=== PATIENT | female | born 1955 | race Caucasian/White ===

== ENCOUNTER 2017-06-28 23:18 | Emergency (ER) | payer MEDICAID ==
[~2017-06-28] VITALS: Ht 154.9 cm; Wt 62.4 kg
[~2017-06-28 23:18] MED LIST: ALEN70TA5 PO; AMOX1TAB12 PO; B CO1TAB14 PO; CEFD300C37 PO; DIVA250T14 PO; DOCU-131 PO; FURO40TA6 PO; GABA300C10 PO; LOSA100T6 PO; LOSA50TA2 PO; MAGN400T26 PO; MAGN400T7 PO; METR500T PO; MYCO500T3 PO; OMEP40CA6 PO; OXYC5TAB3 PO; PANT40TA5 PO; POTA10TA31 PO; POTA20TA89 PO; PRED20TA PO; PRED5TAB PO; ROSU10TA PO; SUCR1TAB PO; SUCR1TAB33 PO; UBID10CA7 PO; UBID200C7 PO; VALS160T3 PO; VALS1TAB26 PO; VERA180C2 PO; VERA180T56 PO; VITA1CAP PO
[2017-06-29] MEDS ORDERED: ROSU5TAB PO (00:11)
[2017-06-29] MEDS ORDERED: PENT100C2 PO (00:11)
[2017-06-29] MEDS ORDERED: ASPIRIN 81 MG TABLET CHEW ONE (00:25)
[2017-06-29] MEDS ORDERED: ASPIRIN 81 MG TABLET CHEW PO ONE (00:30)
[2017-06-29 00:43] LABS: HEMATOCRIT 35.4 % (34.6-47.8); HEMOGLOBIN 11.9 g/dL (11.7-16.4); WHITE BLOOD COUNT 4.9 x10^3/uL (3.4-10)
[2017-06-29 00:56] LABS: ASPARTATE AMINO TRANSFERASE 14 U/L (15-37); BLOOD UREA NITROGEN 34 mg/dL (7-18)
[2017-06-29 01:04] LABS: IS PT STATUS REG ER OR PRE ER? YES
[2017-06-29 01:36] VITALS: BP 172/85
== END 2017-06-29 02:23 | disposition home or self-care (01) ==
LOC: ED 23:59
DX: I10 Essential (primary) hypertension (principal); R07.89 Other chest pain
CPT/HCPCS: 36415; 71010; 80053; 81003; 84484; 85025; 93005; 99285

== ENCOUNTER 2017-06-29 14:51 | Emergency (ER) | payer MEDICAID ==
[~2017-06-29] VITALS: Ht 154.9 cm; Wt 62.0 kg
[~2017-06-29 14:51] MED LIST changes: +PENT100C2 PO; +ROSU5TAB PO
[2017-06-29 15:26] LABS: HEMATOCRIT 36.6 % (34.6-47.8); HEMOGLOBIN 12.2 g/dL (11.7-16.4); WHITE BLOOD COUNT 5.8 x10^3/uL (3.4-10)
[2017-06-29] MEDS ORDERED: MORPHINE SULFATE 4 MG/ML, 1ML IVPush PRN (15:30)
[2017-06-29] MEDS ORDERED: SODIUM CHLORIDE FLUSH 10ML SYR IVF ONE (15:30)
[2017-06-29] MEDS ORDERED: ONDANSETRON 2MG/ML, 2ML IVPush ONE (15:30)
[2017-06-29 15:37] LABS: BLOOD UREA NITROGEN 38 mg/dL (7-18)
[2017-06-29 15:44] LABS: IS PT STATUS REG ER OR PRE ER? YES
[2017-06-29] MEDS ORDERED: MORPHINE SULFATE 4 MG/ML, 1ML ONE (16:06)
[2017-06-29] MEDS ORDERED: ONDANSETRON 2MG/ML, 2ML ONE (16:06)
[2017-06-29] MEDS ORDERED: HYDROcodone/APAP 5/325 TABLET ONE (16:37)
[2017-06-29] MEDS ORDERED: HYDROcodone/APAP 5/325 TABLET PO ONE (17:00)
[2017-06-29 18:10] VITALS: BP 177/93
== END 2017-06-29 18:14 | disposition home or self-care (01) ==
LOC: ED 17:09
DX: H53.8 Other visual disturbances (principal); E78.5 Hyperlipidemia, unspecified; E11.9 Type 2 diabetes mellitus without complications; I10 Essential (primary) hypertension
CPT/HCPCS: 36415; 70450; 71010; 80048; 81003; 82040; 83880; 84484; 85025; 85610; 93005; 96374; 99285; J2405

== ENCOUNTER 2017-09-06 11:15 | Emergency (ER) | payer MEDICAID ==
[~2017-09-06] VITALS: Ht 154.9 cm; Wt 60.3 kg
[2017-09-06] MEDS ORDERED: SODIUM CHLORIDE 0.9% 1,000ML IVBOLUS ONE (12:00)
[2017-09-06] MEDS ORDERED: ONDANSETRON 2MG/ML, 2ML IVPush ONE (12:00)
[2017-09-06] MEDS ORDERED: MECLIZINE CHEWABLE 25 MG TAB PO ONE (12:00)
[2017-09-06] MEDS ORDERED: SODIUM CHLORIDE FLUSH 10ML SYR IVF ONE (12:00)
[2017-09-06] MEDS ORDERED: MECLIZINE CHEWABLE 25 MG TAB ONE (12:07)
[2017-09-06 12:24] LABS: ASPARTATE AMINO TRANSFERASE 13 U/L (15-37); BLOOD UREA NITROGEN 30 mg/dL (7-18)
[2017-09-06 12:25] LABS: HEMATOCRIT 38.1 % (34.6-47.8); HEMOGLOBIN 12.9 g/dL (11.7-16.4); WHITE BLOOD COUNT 4.8 x10^3/uL (3.4-10)
[2017-09-06 12:29] LABS: VALPROIC ACID 28.7 mcg/mL (50.0-100.0)
[2017-09-06 12:33] LABS: IS PT STATUS REG ER OR PRE ER? YES
[2017-09-06] MEDS ORDERED: DIAZEPAM 5 MG TABLET ONE (14:25)
[2017-09-06] MEDS ORDERED: DIAZEPAM 5 MG TABLET PO ONE (14:30)
[2017-09-06 14:33] VITALS: BP 113/73
== END 2017-09-06 16:09 | disposition home or self-care (01) ==
LOC: ED 14:16
DX: H81.10 Benign paroxysmal vertigo, unspecified ear (principal); E11.9 Type 2 diabetes mellitus without complications; E78.5 Hyperlipidemia, unspecified; G43.909 Migraine, unspecified, not intractable, without status migrainosus
CPT/HCPCS: 36415; 70450; 80053; 80164; 84484; 85025; 93005; 99285

== ENCOUNTER 2018-01-24 18:56 | Emergency (ER) | payer MEDICAID ==
[~2018-01-24] VITALS: Ht 165.1 cm; Wt 61.2 kg
[2018-01-24] MEDS ORDERED: KETOROLAC 30 MG/1 ML ONE (19:24)
[2018-01-24] MEDS ORDERED: ONDANSETRON 2MG/ML, 2ML ONE (19:24)
[2018-01-24] MEDS ORDERED: SODIUM CHLORIDE FLUSH 10ML SYR IVF ONE (19:30)
[2018-01-24] MEDS ORDERED: KETOROLAC 30 MG/1 ML IVPush ONE (19:30)
[2018-01-24] MEDS ORDERED: ONDANSETRON 2MG/ML, 2ML IVPush ONE (19:30)
[2018-01-24 19:42] LABS: BASOPHILS # (AUTO) 0.01 x10^3/uL (0-0.1); BASOPHILS % (AUTO) 0 % (0-1); EOSINOPHILS # (AUTO) 0.04 x10^3/uL (0-0.4); EOSINOPHILS % (AUTO) 1 % (1-7); LYMPHOCYTES # (AUTO) 0.76 x10^3/uL (1-3.4); LYMPHOCYTES % (AUTO) 18 % (22-44); MD NO; MEAN CORPUSCULAR HEMOGLOBIN 30.4 pg (27.0-34.8); MEAN CORPUSCULAR HGB CONC 34.4 g/dL (32.4-35.8); MEAN CORPUSCULAR VOLUME 88.4 fL (80-100); MEAN PLATELET VOLUME 10.7 fL (7.4-10.4); MONOCYTES % (AUTO) 3 % (2-9); NEUTROPHILS # (AUTO) 3.26 x10^3/uL (1.8-6.8); NEUTROPHILS % (AUTO) 78 % (42-75); PLATELET COUNT 152 x10^3/uL (130-400); RED BLOOD COUNT 4.02 x10^6/uL (3.82-5.3); RED CELL DISTRIBUTION WIDTH 13.1 % (9.6-15.2)
[2018-01-24 19:43] LABS: MICROSCOPIC NOT IND
[2018-01-24 19:54] LABS: ANION GAP 8 mmol/L (5-15); CALCIUM 8.7 mg/dL (8.5-10.1); CHLORIDE 110 mmol/L (98-107)
[2018-01-24 19:56] LABS: ALANINE AMINOTRANSFERASE 24 U/L (12-78); ALKALINE PHOSPHATASE 67 U/L (45-117); BILIRUBIN,TOTAL 0.3 mg/dL (0.2-1.0); CREATININE 1.72 mg/dL (0.55-1.02); TOTAL PROTEIN 7.3 g/dL (6.4-8.2)
[2018-01-24 19:56] LABS: CULTURE INDICATED? NO
[2018-01-24 21:55] VITALS: BP 140/85
== END 2018-01-24 21:57 | disposition home or self-care (01) ==
LOC: ED 21:51
DX: N18.2 Chronic kidney disease, stage 2 (mild) (principal); R30.0 Dysuria; I12.9 Hypertensive chronic kidney disease with stage 1 through stage 4 chronic kidney disease, or unspecified chronic kidney disease; E11.22 Type 2 diabetes mellitus with diabetic chronic kidney disease; E78.5 Hyperlipidemia, unspecified; K21.9 Gastro-esophageal reflux disease without esophagitis
CPT/HCPCS: 36415; 74176; 76770; 80053; 81003; 85025; 96374; 96375; 99285; J1885; J2405

== ENCOUNTER 2018-06-30 12:18 | Emergency (ER) | payer MEDICAID ==
[~2018-06-30] VITALS: Ht 154.9 cm; Wt 62.0 kg
[2018-06-30 12:29] VITALS: BP 138/82
== END 2018-06-30 13:53 | disposition home or self-care (01) ==
LOC: ED 13:30
DX: S93.402A Sprain of unspecified ligament of left ankle, initial encounter (principal); E11.9 Type 2 diabetes mellitus without complications; E78.5 Hyperlipidemia, unspecified; I10 Essential (primary) hypertension; X50.1XXA Overexertion from prolonged static or awkward postures, initial encounter; Y93.89 Activity, other specified; Y99.8 Other external cause status; Y92.099 Unspecified place in other non-institutional residence as the place of occurrence of the external cause
CPT/HCPCS: 99284

== ENCOUNTER 2018-07-31 17:28 | Emergency (ER) | payer MEDICAID ==
[~2018-07-31] VITALS: Ht 152.4 cm; Wt 60.1 kg
[~2018-07-31 17:28] MED LIST changes: -LOSA100T6 PO; +LOSA100T7 PO
[2018-07-31 18:15] VITALS: BP 132/84
== END 2018-07-31 19:27 | disposition home or self-care (01) ==
LOC: ED 18:51
DX: S93.492A Sprain of other ligament of left ankle, initial encounter (principal); I10 Essential (primary) hypertension; K21.9 Gastro-esophageal reflux disease without esophagitis; E11.9 Type 2 diabetes mellitus without complications; E78.5 Hyperlipidemia, unspecified; X50.1XXA Overexertion from prolonged static or awkward postures, initial encounter; Y93.89 Activity, other specified; Y92.89 Other specified places as the place of occurrence of the external cause; Y99.8 Other external cause status
CPT/HCPCS: 72110; 99284

== ENCOUNTER → 2018-11-14 | Outpatient (CLI) | payer MEDICAID ==
[~2018-11-14] MED LIST changes: +GADOBUTROL 7.5 MMOL/7.5 ML PFS ONE
== END | disposition home or self-care (01) ==
LOC: CFH 11:41
PROVIDERS: ATTEND Psychiatry & Neurology Neurology
DX: I60.9 Nontraumatic subarachnoid hemorrhage, unspecified (principal)
CPT/HCPCS: 70553; A9585

== ENCOUNTER 2019-06-25 12:51 | Emergency (ER) | payer MEDICAID ==
[~2019-06-25] VITALS: Ht 154.9 cm; Wt 57.9 kg
[2019-06-25 14:34] VITALS: BP 136/89
== END 2019-06-25 15:55 | disposition home or self-care (01) ==
LOC: ED 15:49
DX: N18.3 Chronic kidney disease, stage 3 (moderate) (principal); I10 Essential (primary) hypertension; I12.9 Hypertensive chronic kidney disease with stage 1 through stage 4 chronic kidney disease, or unspecified chronic kidney disease; E11.22 Type 2 diabetes mellitus with diabetic chronic kidney disease; E11.9 Type 2 diabetes mellitus without complications; E78.5 Hyperlipidemia, unspecified; R51 Headache
CPT/HCPCS: 36415; 70450; 80048; 82040; 85025; 93005; 99284

== ENCOUNTER 2019-09-18 14:35 | Emergency (ER) | payer MEDICAID ==
[~2019-09-18] VITALS: Ht 154.9 cm; Wt 57.6 kg
[~2019-09-18 14:35] MED LIST changes: -ALEN70TA5 PO; +ALEN70TA6 PO; -GADOBUTROL 7.5 MMOL/7.5 ML PFS ONE; +LOSA100T14 PO; -LOSA100T7 PO; -MAGN400T7 PO; +MAGN400T9 PO; +OMEP40CA42 PO; -OMEP40CA6 PO; -ROSU10TA PO; +ROSU10TA2 PO; -VERA180T56 PO; +VERA180T6 PO
[2019-09-18 14:38] VITALS: BP 129/78
--- NOTE | 2019-09-18 15:19 | NUR ---
pt ambulated to room with a steady gait. Comes in with c/o body aches x3 weeks, cough x 3 weeks, bilateral ear ache and fever x3-4 days
--- NOTE | 2019-09-18 15:25 | NUR ---
at bedside evulating pt.
--- NOTE | 2019-09-18 16:13 | NUR ---
MD at bedside discussing POC.
--- NOTE | 2019-09-18 17:07 | NUR ---
Pt verb. understanding of d/c instructions & use of spacer. D/C RX & instructions provided.
== END 2019-09-18 17:10 | disposition home or self-care (01) ==
LOC: ED 17:00
DX: J20.9 Acute bronchitis, unspecified (principal); H92.03 Otalgia, bilateral
CPT/HCPCS: 71046; 99283

== ENCOUNTER 2019-12-17 16:54 | Inpatient (IN) | payer MEDICAID ==
[~2019-12-17] VITALS: Ht 154.9 cm; Wt 58.6 kg
--- NOTE | 2019-12-17 17:23 | NUR ---
COMPUTER FORENSIC SPECIALIST: PT AMBULATORY WITH STEADY GAIT TO ROOM FROM LOBBY AT THIS TIME. JUAN C
--- NOTE | 2019-12-17 17:39 | NUR ---
FIRST CONTACT WITH PT. PT C/O RLQ PAIN SINCE LAST NIGHT, HX SAME 3YRS AGO, HYSTERECTOMY/APPY, DENIES NV/FEVER. PT'S AOX4. RESPS EVEN AND UNLABORED. BP/SPO2 MONITORS IN PLACE. CALL LIGHT WITHIN REACH. LAB AT BEDSIDE. BRAZILIAN IS PRIMARY LANGUAGE.
--- NOTE | 2019-12-17 17:45 | NUR ---
PT BACK TO ROOM FROM XRAY AT THIS TIME.
--- NOTE | 2019-12-17 17:49 | NUR ---
UA SENT AT THIS TIME.
[2019-12-17 17:51] LABS: ALBUMIN 4.2 g/dL (3.4-5.0); ANION GAP 7 mmol/L (5-15); CHLORIDE 116 mmol/L (98-107); CREATININE 1.83 mg/dL (0.55-1.02)
[2019-12-17 18:11] LABS: CULTURE INDICATED? YES; MICROSCOPIC INDICATED
[2019-12-17 18:31] LABS: BASOPHILS # (AUTO) 0.03 x10^3/uL (0-0.1); BASOPHILS % (AUTO) 1 % (0-1); EOSINOPHILS # (AUTO) 0.08 x10^3/uL (0-0.4); EOSINOPHILS % (AUTO) 2 % (1-7); LYMPHOCYTES # (AUTO) 1.84 x10^3/uL (1-3.4); LYMPHOCYTES % (AUTO) 35 % (22-44); MD SCAN; MEAN CORPUSCULAR HEMOGLOBIN 30.3 pg (27.0-34.8); MEAN CORPUSCULAR HGB CONC 33.6 g/dL (32.4-35.8); MEAN PLATELET VOLUME 11.4 fL (7.4-10.4); MONOCYTES # (AUTO) 0.23 x10^3/uL (0.2-0.8); MONOCYTES % (AUTO) 4 % (2-9); NEUTROPHILS # (AUTO) 3.11 x10^3/uL (1.8-6.8); NEUTROPHILS % (AUTO) 59 % (42-75); PLATELET COUNT 110 x10^3/uL (130-400); RED BLOOD COUNT 4.18 x10^6/uL (3.82-5.3); RED CELL DISTRIBUTION WIDTH 12.9 % (9.6-15.2)
--- NOTE | 2019-12-17 18:32 | NUR ---
PT RESTING IN [facility]. RESPS EVEN AND UNLABORED. BP/SPO2 MONITORS IN PLACE. CALL LIGHT WITHIN REACH.
--- NOTE | 2019-12-17 18:50 | NUR ---
REPORT GIVEN TO CARLYLE DEVRIES.
--- NOTE | 2019-12-17 20:15 | NUR ---
Pt still complaining of right lower quad pain.
[2019-12-17] MEDS ORDERED: HYDROmorphone 1 MG/ML, 1ML INJ IV ONE (20:23)
[2019-12-17] MEDS ORDERED: HYDROmorphone 1 MG/ML, 1ML INJ ONE (20:29)
[2019-12-17] MEDS ORDERED: ONDANSETRON 2MG/ML, 2ML ONE ×2 (20:29→22:26)
[2019-12-17] MEDS ORDERED: ONDANSETRON 2MG/ML, 2ML IVPush ONE (20:30)
[2019-12-17] MEDS ORDERED: FENTANYL PF 100 MCG/2ML ONE (22:16)
[2019-12-17] MEDS ORDERED: MIDAZOLAM 1 MG/ML, 2ML ONE (22:17)
[2019-12-17] MEDS ORDERED: SUGAMMADEX 200 MG/2 ML IVPush ONE (22:26)
[2019-12-17] MEDS ORDERED: DEXAMETHASONE 4 MG/ML, 1ML ONE (22:26)
[2019-12-17] MEDS ORDERED: PROPOFOL 10 MG/ML, 20ML ONE (22:26)
[2019-12-17] MEDS ORDERED: PHENYLEPHRINE 10 MG/ML ONE (22:26)
[2019-12-17] MEDS ORDERED: LIDOCAINE PF 2%, 5ML ONE (22:26)
[2019-12-17] MEDS ORDERED: CEFAZOLIN 1,000 MG ONE (22:26)
[2019-12-17] MEDS ORDERED: ROCURONIUM 10 MG/ML,10ML ONE (22:26)
[2019-12-17] MEDS ORDERED: BUPIVACAINE/PF-EPI 0.5% 1:200K INFIL ONE (22:49)
[2019-12-17] MEDS ORDERED: ONDANSETRON 2MG/ML, 2ML IV PRN (23:00)
[2019-12-17] MEDS: SODIUM CHLORIDE FLUSH 10ML SYR IVF SCH (23:00)
[2019-12-17] MEDS ORDERED: BISACODYL 10 MG SUPP PR PRN (23:00)
[2019-12-17] MEDS ORDERED: HYDROmorphone 2 MG/ML, 1ML IVPush PRN ×2 (23:00)
[2019-12-17] MEDS ORDERED: ONDANSETRON 2MG/ML, 2ML IVPush PRN (23:00)
[2019-12-17] MEDS ORDERED: DIVALPROEX 250 MG TAB.ER.24H PO PRN (23:00)
[2019-12-17] MEDS ORDERED: KETOROLAC 30 MG/1 ML IV PRN (23:00)
[2019-12-17] MEDS ORDERED: ACETAMINOPHEN 325 MG TABLET PO PRN (23:00)
[2019-12-18] MEDS: OXYcodone 5 MG/5 ML ORAL.SOL UDC PO PRN ×2 (00:10→00:33)
[2019-12-18] MEDS: FENTANYL PF 100 MCG/2ML IV PRN ×2 (00:10→00:30)
[2019-12-18] MEDS ORDERED: FENTANYL PF 100 MCG/2ML ONE (00:11)
[2019-12-18] MEDS ORDERED: OXYcodone 5 MG/5 ML ORAL.SOL UDC ONE ×2 (00:11→00:34)
[2019-12-18] MEDS ORDERED: CEFTRIAXONE PMX 1GM/50ML 50 ML IV SCH (01:00)
[2019-12-18] MEDS ORDERED: OXYcodone 5 MG/5 ML ORAL.SOL UDC PO PRN ×2 (02:00→08:30)
[2019-12-18] MEDS ORDERED: ACETAMINOPHEN 325 MG TABLET PO PRN ×2 (02:00→08:30)
[2019-12-18 05:11] LABS: CHLORIDE 113 mmol/L (98-107)
[2019-12-18 05:13] LABS: BASOPHILS # (AUTO) 0.01 x10^3/uL (0-0.1); BASOPHILS % (AUTO) 0 % (0-1); EOSINOPHILS # (AUTO) 0.03 x10^3/uL (0-0.4); EOSINOPHILS % (AUTO) 0 % (1-7); LYMPHOCYTES # (AUTO) 0.46 x10^3/uL (1-3.4); LYMPHOCYTES % (AUTO) 6 % (22-44); MD NO; MEAN CORPUSCULAR HEMOGLOBIN 30.2 pg (27.0-34.8); MEAN CORPUSCULAR HGB CONC 33.6 g/dL (32.4-35.8); MEAN CORPUSCULAR VOLUME 89.9 fL (80-100); MONOCYTES # (AUTO) 0.09 x10^3/uL (0.2-0.8); MONOCYTES % (AUTO) 1 % (2-9); NEUTROPHILS # (AUTO) 6.58 x10^3/uL (1.8-6.8); NEUTROPHILS % (AUTO) 92 % (42-75); PLATELET COUNT 127 x10^3/uL (130-400); RED CELL DISTRIBUTION WIDTH 12.8 % (9.6-15.2)
[2019-12-18 05:16] LABS: ANION GAP 7 mmol/L (5-15); CALCIUM 8.5 mg/dL (8.5-10.1); CREATININE 1.84 mg/dL (0.55-1.02)
[2019-12-18 06:45] VITALS: BP 124/69
[2019-12-18] MEDS: SODIUM CHLORIDE FLUSH 10ML SYR IVF SCH (07:51)
[2019-12-18] MEDS ORDERED: SODIUM CHLORIDE 0.9% 1,000 ML IV SCH (08:30)
[2019-12-18] MEDS ORDERED: HEPARIN 5,000 UNITS/ML, 1ML SQ SCH (08:30)
[2019-12-18] MEDS ORDERED: LOSARTAN 100 MG TAB PO SCH (09:00)
[2019-12-18] MEDS ORDERED: GABAPENTIN 300 MG CAPSULE PO SCH (09:00)
[2019-12-18] MEDS ORDERED: PENTOSAN POLYSULFATE SODIUM PO SCH (09:00)
[2019-12-18] MEDS ORDERED: ACET325T26 PO (11:21)
[2019-12-18] MEDS ORDERED: OXYC5TAB3 PO (14:09)
[2019-12-18 14:15] VITALS: BP 107/73
[2019-12-18] MEDS ORDERED: ATORVASTATIN 20 MG TABLET PO SCH (21:00)
[2019-12-23] MEDS ORDERED: ALENDRONATE 70 MG TABLET PO SCH (06:30)
== END 2019-12-18 14:35 | disposition home or self-care (01) | DRG 228 ==
LOC: ED 21:37 → EDIP 22:10 → 4NE 12-18 00:45 → DCLOUNGE 12-18 14:26
PROVIDERS: ADMIT Internal Medicine; ATTEND Internal Medicine
PROC: 0YU50JZ Supplement Right Inguinal Region with Synthetic Substitute, Open Approach (ICD-10-PCS; 2019-12-17)
PROC: 0YU70JZ Supplement Right Femoral Region with Synthetic Substitute, Open Approach (ICD-10-PCS; principal; 2019-12-17 22:00)
DX: K40.90 Unilateral inguinal hernia, without obstruction or gangrene, not specified as recurrent (principal); N17.9 Acute kidney failure, unspecified; Q61.3 Polycystic kidney, unspecified; D69.6 Thrombocytopenia, unspecified; E11.22 Type 2 diabetes mellitus with diabetic chronic kidney disease; N18.4 Chronic kidney disease, stage 4 (severe); E78.5 Hyperlipidemia, unspecified; G47.30 Sleep apnea, unspecified; I12.9 Hypertensive chronic kidney disease with stage 1 through stage 4 chronic kidney disease, or unspecified chronic kidney disease; M81.0 Age-related osteoporosis without current pathological fracture; N39.0 Urinary tract infection, site not specified; Z66 Do not resuscitate; Z82.49 Family history of ischemic heart disease and other diseases of the circulatory system; Z83.3 Family history of diabetes mellitus; Z86.73 Personal history of transient ischemic attack (TIA), and cerebral infarction without residual deficits; Z90.710 Acquired absence of both cervix and uterus; K41.90 Unilateral femoral hernia, without obstruction or gangrene, not specified as recurrent
CPT/HCPCS: 36415; 74021; 74176; 80048; 81001; 82040; 85025; 87086; 88302; 93005; J0690; J1100; J1170; J1644; J2250; J2405; J2704; J3010; C1781; J2370; J7030

== ENCOUNTER 2020-04-25 21:40 | Inpatient (IN) | payer MEDICAID ==
[~2020-04-25] VITALS: Ht 154.9 cm; Wt 62.0 kg
[~2020-04-25 21:40] MED LIST changes: +ACET325T26 PO
--- NOTE | 2020-04-25 22:08 | NUR ---
TASK RN: FIRST CONTACT WITH PT. PT CAME IN TODAY DUE TO SEVERE RLQ ABDOMINAL PAIN. PT STATES SHE HAD HERNIA REPAIR December. 2 WEEKS AGO HAD A RECHECK CT SCAN AND WAS FOUND TO HAVE AN ADDITIONAL HERNIA AT THAT TIME. AT THIS TIME PT IS LAYING IN GURNEY, CHANGED INTO GOWN, DENIES ANY N/V/D. DENIES BURNING WITH URINATION. STATES THE PAIN STARTS NEAR HER SURGERY SCAR AND RADIATES UP. IS A SHARP STABBING PAIN. PT GIVEN WARM BLANKETS FOR COMFORT, FAMILY AT , PLACED ON SPO2/BP MONITORING. WCTM.
--- NOTE | 2020-04-25 22:12 | NUR ---
TASK RN: PT AMBULATED TO AND FROM BATHROOM WITH A SMOOTH AND STEADY GAIT, PT UA OBTAINED AND SENT TO LAB.
--- NOTE | 2020-04-25 22:12 | NUR ---
DAVID LILLY AT BS FOR EVAL AND POC.
[2020-04-25] MEDS ORDERED: ONDANSETRON 2MG/ML, 2ML ONE (22:18)
[2020-04-25] MEDS ORDERED: FENTANYL PF 100 MCG/2ML ONE (22:19)
[2020-04-25] MEDS ORDERED: SODIUM CHLORIDE FLUSH 10ML SYR IVF ONE (22:30)
[2020-04-25] MEDS ORDERED: FENTANYL PF 100 MCG/2ML IV ONE (22:30)
[2020-04-25] MEDS ORDERED: ONDANSETRON 2MG/ML, 2ML IVPush ONE (22:30)
[2020-04-25 22:48] LABS: BASOPHILS # (AUTO) 0.03 x10^3/uL (0-0.1); BASOPHILS % (AUTO) 1 % (0-1); EOSINOPHILS # (AUTO) 0.05 x10^3/uL (0-0.4); EOSINOPHILS % (AUTO) 1 % (1-7); LYMPHOCYTES # (AUTO) 1.72 x10^3/uL (1-3.4); LYMPHOCYTES % (AUTO) 38 % (22-44); MD NO; MEAN CORPUSCULAR HGB CONC 33.6 g/dL (32.4-35.8); MEAN CORPUSCULAR VOLUME 89.3 fL (80-100); MEAN PLATELET VOLUME 10.4 fL (7.4-10.4); MONOCYTES # (AUTO) 0.34 x10^3/uL (0.2-0.8); MONOCYTES % (AUTO) 7 % (2-9); NEUTROPHILS # (AUTO) 2.46 x10^3/uL (1.8-6.8); NEUTROPHILS % (AUTO) 53 % (42-75); PLATELET COUNT 162 x10^3/uL (130-400); RED BLOOD COUNT 3.61 x10^6/uL (3.82-5.3); RED CELL DISTRIBUTION WIDTH 12.9 % (9.6-15.2)
[2020-04-25 22:57] LABS: ALBUMIN 3.9 g/dL (3.4-5.0); ANION GAP 8 mmol/L (5-15); CALCIUM 8.7 mg/dL (8.5-10.1); CHLORIDE 114 mmol/L (98-107); CREATININE 2.69 mg/dL (0.55-1.02)
[2020-04-25 23:20] LABS: MICROSCOPIC AUTO
--- NOTE | 2020-04-26 00:07 | NUR ---
PT MEDICATED PER MAR. UPDATED ON POC. UP TO BATHROOM WITH STEADY GAIT. MONITORING REAPPLIED. CALL LIGHT WITHIN REACH. FAMILY AT FOR SUPPORT.
[2020-04-26] MEDS ORDERED: SODIUM CHLORIDE 0.9% 1,000 ML IV SCH (00:22)
[2020-04-26] MEDS ORDERED: CEFTRIAXONE PMX 1GM/50ML 50 ML ONE (00:28)
[2020-04-26] MEDS: CEFTRIAXONE PMX 1GM/50ML 50 ML IV SCH (00:30)
[2020-04-26] MEDS ORDERED: ONDANSETRON 2MG/ML, 2ML IVPush PRN (00:30)
[2020-04-26] MEDS ORDERED: DIVALPROEX 250 MG TAB.ER.24H PO PRN (00:30)
[2020-04-26] MEDS ORDERED: BISACODYL 10 MG SUPP PR PRN (00:30)
[2020-04-26] MEDS ORDERED: ACETAMINOPHEN 325 MG TABLET PO PRN (00:30)
[2020-04-26] MEDS ORDERED: SODIUM CHLORIDE 0.9% 1,000ML IVBOLUS ONE ×2 (00:30)
--- NOTE | 2020-04-26 00:39 | NUR ---
PT UPDATED ON POC, MEDICATED PER MAR. MONITORING IN PLACE. CALL LIGHT WITHIN REACH, ALL SAFETY MEASURES IN PLACE.
--- NOTE | 2020-04-26 00:53 | NUR ---
TASK RN: PT RESTING IN [facility] ON PHONE AT THIS TIME. NADN. PT HAS CALL LIGHT WITHIN REACH. IV FLUIDS RUNNING PER EMAR. PT ATTACHED TO VS MONITORS AND VSS AT THIS TIME.
--- NOTE | 2020-04-26 01:26 | NUR ---
task rn: report of pt to filipe Castaneda. All questions answered. tech paged for transpot of pt from ed to floor at this time.
[2020-04-26 02:00] VITALS: BP 142/79
[2020-04-26] MEDS: SODIUM CHLORIDE 0.45% 1,000 ML IV SCH ×2 (02:00→16:26)
[2020-04-26 02:30] VITALS: BP 116/78
[2020-04-26 05:23] LABS: BASOPHILS # (AUTO) 0.02 x10^3/uL (0-0.1); BASOPHILS % (AUTO) 1 % (0-1); EOSINOPHILS # (AUTO) 0.08 x10^3/uL (0-0.4); EOSINOPHILS % (AUTO) 2 % (1-7); LYMPHOCYTES # (AUTO) 1.92 x10^3/uL (1-3.4); LYMPHOCYTES % (AUTO) 47 % (22-44); MD NO; MEAN CORPUSCULAR HEMOGLOBIN 29.6 pg (27.0-34.8); MEAN CORPUSCULAR HGB CONC 32.9 g/dL (32.4-35.8); MEAN CORPUSCULAR VOLUME 89.8 fL (80-100); MONOCYTES # (AUTO) 0.34 x10^3/uL (0.2-0.8); MONOCYTES % (AUTO) 8 % (2-9); NEUTROPHILS # (AUTO) 1.75 x10^3/uL (1.8-6.8); NEUTROPHILS % (AUTO) 43 % (42-75); PLATELET COUNT 154 x10^3/uL (130-400); RED BLOOD COUNT 3.87 x10^6/uL (3.82-5.3); RED CELL DISTRIBUTION WIDTH 12.9 % (9.6-15.2)
[2020-04-26] MEDS: HYDROmorphone 2 MG/ML, 1ML IVPush PRN ×2 (05:36→22:50)
[2020-04-26 05:38] LABS: ANION GAP 10 mmol/L (5-15); CALCIUM 8.5 mg/dL (8.5-10.1); CHLORIDE 117 mmol/L (98-107); CREATININE 2.17 mg/dL (0.55-1.02)
[2020-04-26 07:25] VITALS: BP 147/88
[2020-04-26] MEDS: PENTOSAN POLYSULFATE SODIUM HOMEMEDPO SCH (09:00)
[2020-04-26] MEDS ORDERED: LOSARTAN 100 MG TAB PO SCH (09:00)
[2020-04-26] MEDS: PANTOPRAZOLE 20MG TABLET PO SCH (09:07)
[2020-04-26] MEDS ORDERED: CEFAZOLIN 1,000 MG ONE (13:09)
[2020-04-26] MEDS ORDERED: ROCURONIUM 10MG/ML,5ML ONE (13:09)
[2020-04-26] MEDS ORDERED: SUCCINYLCHOLINE 20 MG/ML, 10ML ONE (13:09)
[2020-04-26] MEDS ORDERED: PROPOFOL 10 MG/ML, 20ML ONE (13:09)
[2020-04-26] MEDS ORDERED: ONDANSETRON 2MG/ML, 2ML ONE (13:09)
[2020-04-26] MEDS ORDERED: FENTANYL PF 250 MCG/5ML ONE (13:09)
[2020-04-26] MEDS ORDERED: DEXAMETHASONE 4 MG/ML, 1ML ONE (13:09)
[2020-04-26] MEDS ORDERED: OMNIPAQUE 350 MG/ML, 50 ML BOTTLE ONE (13:10)
[2020-04-26] MEDS ORDERED: LABETALOL 5MG/ML, 20ML IV PRN (14:30)
[2020-04-26] MEDS ORDERED: MEPERIDINE/PF 25MG/0.5ML IVPush PRN (14:30)
[2020-04-26] MEDS ORDERED: FENTANYL PF 100 MCG/2ML IV PRN (14:30)
[2020-04-26] MEDS ORDERED: PROMETHAZINE 25 MG/ML, 1ML IVPush PRN (14:30)
[2020-04-26] MEDS ORDERED: hydrALAzine 20 MG/ML, 1ML IV PRN (14:30)
[2020-04-26] MEDS ORDERED: HALOPERIDOL 5 MG/ML IV PRN (14:30)
[2020-04-26] MEDS ORDERED: DIPHENHYDRAMINE 50 MG/ML, 1ML IVPush PRN (14:30)
[2020-04-26] MEDS ORDERED: HYDROmorphone 1 MG/ML, 1ML INJ IVPush PRN (14:30)
[2020-04-26] MEDS ORDERED: OXYcodone 5 MG/5 ML ORAL.SOL UDC PO PRN (14:30)
[2020-04-26 15:04] VITALS: BP 133/77
[2020-04-26] MEDS: HYDROcodone/APAP 5/325 TABLET PO PRN (18:37)
[2020-04-26 18:45] VITALS: BP 119/70
[2020-04-26] MEDS: ATORVASTATIN 20 MG TABLET PO SCH (19:42)
[2020-04-27] MEDS: CEFTRIAXONE PMX 1GM/50ML 50 ML IV SCH (00:37)
[2020-04-27] MEDS: HYDROcodone/APAP 5/325 TABLET PO PRN ×4 (00:38→20:20)
[2020-04-27 00:44] VITALS: BP 98/63
[2020-04-27] MEDS: SODIUM CHLORIDE 0.45% 1,000 ML IV SCH ×2 (03:01→12:56)
[2020-04-27 03:45] VITALS: BP 110/71
[2020-04-27 05:44] LABS: ALANINE AMINOTRANSFERASE 22 U/L (12-78); ALBUMIN 3.2 g/dL (3.4-5.0); ANION GAP 12 mmol/L (5-15); CALCIUM 8.3 mg/dL (8.5-10.1); CHLORIDE 114 mmol/L (98-107); MEAN CORPUSCULAR HEMOGLOBIN 30.1 pg (27.0-34.8); MEAN CORPUSCULAR HGB CONC 33.5 g/dL (32.4-35.8); MEAN PLATELET VOLUME 11.2 fL (7.4-10.4); PLATELET COUNT 146 x10^3/uL (130-400); RED BLOOD COUNT 3.46 x10^6/uL (3.82-5.3); RED CELL DISTRIBUTION WIDTH 12.9 % (9.6-15.2)
[2020-04-27 05:46] LABS: ALKALINE PHOSPHATASE 67 U/L (45-117); BILIRUBIN,TOTAL 0.2 mg/dL (0.2-1.0); TOTAL PROTEIN 6.4 g/dL (6.4-8.2)
[2020-04-27 06:47] LABS: BASOPHILS # (AUTO) 0.02 x10^3/uL (0-0.1); BASOPHILS % (AUTO) 0 % (0-1); EOSINOPHILS % (AUTO) 0 % (1-7); LYMPHOCYTES # (AUTO) 0.66 x10^3/uL (1-3.4); LYMPHOCYTES % (AUTO) 13 % (22-44); MD SCAN; MONOCYTES # (AUTO) 0.23 x10^3/uL (0.2-0.8); MONOCYTES % (AUTO) 5 % (2-9); NEUTROPHILS # (AUTO) 4.13 x10^3/uL (1.8-6.8); NEUTROPHILS % (AUTO) 82 % (42-75)
[2020-04-27 06:51] VITALS: BP 129/82
[2020-04-27] MEDS: PANTOPRAZOLE 20MG TABLET PO SCH (07:28)
[2020-04-27] MEDS ORDERED: POLYETHYLENE GLYCOL 17 GM PACKET NG PRN (08:30)
[2020-04-27] MEDS: PENTOSAN POLYSULFATE SODIUM HOMEMEDPO SCH (09:00)
[2020-04-27] MEDS: SENNA/DOCUSATE TABLET PO SCH (09:46)
[2020-04-27 13:20] VITALS: BP 128/81
[2020-04-27] MEDS: TAMSULOSIN 0.4 MG CAP.ER.24H PO SCH (15:22)
[2020-04-27] MEDS: OXYBUTYNIN CHLORIDE 5 MG TABLET PO SCH ×2 (15:22→20:20)
[2020-04-27] MEDS ORDERED: AMLO10TA8 PO (15:28)
[2020-04-27 18:51] VITALS: BP 117/76
[2020-04-27] MEDS: ATORVASTATIN 20 MG TABLET PO SCH (20:20)
[2020-04-28] MEDS: CEFTRIAXONE PMX 1GM/50ML 50 ML IV SCH (00:11)
[2020-04-28 01:44] VITALS: BP 115/76
[2020-04-28] MEDS: HYDROcodone/APAP 5/325 TABLET PO PRN ×2 (03:09→08:46)
[2020-04-28 06:45] VITALS: BP 142/82
[2020-04-28 07:14] LABS: BASOPHILS # (AUTO) 0.02 x10^3/uL (0-0.1); BASOPHILS % (AUTO) 0 % (0-1); EOSINOPHILS # (AUTO) 0.07 x10^3/uL (0-0.4); EOSINOPHILS % (AUTO) 1 % (1-7); LYMPHOCYTES # (AUTO) 2.19 x10^3/uL (1-3.4); LYMPHOCYTES % (AUTO) 41 % (22-44); MD NO; MEAN CORPUSCULAR HEMOGLOBIN 30.1 pg (27.0-34.8); MEAN CORPUSCULAR HGB CONC 33.3 g/dL (32.4-35.8); MEAN CORPUSCULAR VOLUME 90.2 fL (80-100); MEAN PLATELET VOLUME 10.6 fL (7.4-10.4); MONOCYTES # (AUTO) 0.28 x10^3/uL (0.2-0.8); MONOCYTES % (AUTO) 5 % (2-9); NEUTROPHILS # (AUTO) 2.73 x10^3/uL (1.8-6.8); NEUTROPHILS % (AUTO) 52 % (42-75); PLATELET COUNT 150 x10^3/uL (130-400); RED BLOOD COUNT 3.68 x10^6/uL (3.82-5.3); RED CELL DISTRIBUTION WIDTH 12.8 % (9.6-15.2)
[2020-04-28 07:21] LABS: ANION GAP 5 mmol/L (5-15); CALCIUM 8.4 mg/dL (8.5-10.1); CHLORIDE 115 mmol/L (98-107); CREATININE 1.92 mg/dL (0.55-1.02)
[2020-04-28] MEDS ORDERED: SENN-193 PO (08:08)
[2020-04-28] MEDS ORDERED: TAMS-11 PO (08:08)
[2020-04-28] MEDS ORDERED: OXYB5TAB10 PO (08:08)
[2020-04-28] MEDS ORDERED: HYDR-3237 PO (08:08)
[2020-04-28] MEDS: PANTOPRAZOLE 20MG TABLET PO SCH (08:15)
[2020-04-28] MEDS: OXYBUTYNIN CHLORIDE 5 MG TABLET PO SCH (08:15)
[2020-04-28] MEDS: TAMSULOSIN 0.4 MG CAP.ER.24H PO SCH (08:16)
[2020-04-28] MEDS: SENNA/DOCUSATE TABLET PO SCH (08:16)
[2020-04-28] MEDS: PENTOSAN POLYSULFATE SODIUM HOMEMEDPO SCH (08:17)
[2020-04-28 13:12] VITALS: BP 107/72
== END 2020-04-28 15:00 | disposition home or self-care (01) | DRG 463 ==
LOC: ED 23:01 → EDIP 04-26 00:13 → 4NE 04-26 01:33 → DCLOUNGE 04-28 14:53
PROVIDERS: ADMIT Internal Medicine; ATTEND Family Medicine
PROC: BT1D1ZZ Fluoroscopy of Right Kidney, Ureter and Bladder using Low Osmolar Contrast (ICD-10-PCS; 2020-04-26)
PROC: 0TJ98ZZ Inspection of Ureter, Via Natural or Artificial Opening Endoscopic (ICD-10-PCS; 2020-04-26)
PROC: 0T768DZ Dilation of Right Ureter with Intraluminal Device, Via Natural or Artificial Opening Endoscopic (ICD-10-PCS; principal; 2020-04-26 13:00)
DX: N13.6 Pyonephrosis (principal); E11.22 Type 2 diabetes mellitus with diabetic chronic kidney disease; Q61.3 Polycystic kidney, unspecified; N17.9 Acute kidney failure, unspecified; N18.3 Chronic kidney disease, stage 3 (moderate); K76.89 Other specified diseases of liver; G43.909 Migraine, unspecified, not intractable, without status migrainosus; I12.9 Hypertensive chronic kidney disease with stage 1 through stage 4 chronic kidney disease, or unspecified chronic kidney disease; K21.9 Gastro-esophageal reflux disease without esophagitis; Z66 Do not resuscitate; Z20.828 Contact with and (suspected) exposure to other viral communicable diseases; E86.0 Dehydration; D64.9 Anemia, unspecified; E78.5 Hyperlipidemia, unspecified; M81.0 Age-related osteoporosis without current pathological fracture; K57.90 Diverticulosis of intestine, part unspecified, without perforation or abscess without bleeding; Z90.710 Acquired absence of both cervix and uterus; Z86.73 Personal history of transient ischemic attack (TIA), and cerebral infarction without residual deficits; Z83.3 Family history of diabetes mellitus; Z87.442 Personal history of urinary calculi; Z82.49 Family history of ischemic heart disease and other diseases of the circulatory system
CPT/HCPCS: 36415; 74176; 74420; 80048; 80053; 81001; 82040; 85025; 87086; 87635; 93005; 96374; 96375; 99291; G0378; J0690; J0696; J1100; J1170; J2405; J2704; J3010; Q9967; C1769; C2617; J0330; J7030

== ENCOUNTER 2020-06-24 11:35 | Emergency (ER) | payer MEDICAID ==
[~2020-06-24] VITALS: Ht 154.9 cm; Wt 61.3 kg
[~2020-06-24 11:35] MED LIST changes: +AMLO10TA8 PO; +HYDR-3237 PO; +OXYB5TAB10 PO; +SENN-193 PO; +TAMS-11 PO
[2020-06-24] MEDS ORDERED: SODIUM CHLORIDE 0.9% 1,000 ML IV ONE (12:09)
[2020-06-24] MEDS ORDERED: ONDANSETRON 2MG/ML, 2ML IVPush ONE (12:30)
[2020-06-24] MEDS ORDERED: SODIUM CHLORIDE FLUSH 10ML SYR IVF ONE (12:30)
[2020-06-24 12:31] LABS: BASOPHILS # (AUTO) 0.03 x10^3/uL (0-0.1); BASOPHILS % (AUTO) 1 % (0-1); EOSINOPHILS # (AUTO) 0.05 x10^3/uL (0-0.4); EOSINOPHILS % (AUTO) 1 % (1-7); LYMPHOCYTES # (AUTO) 1.37 x10^3/uL (1-3.4); LYMPHOCYTES % (AUTO) 33 % (22-44); MD NO; MEAN CORPUSCULAR HEMOGLOBIN 29.5 pg (27.0-34.8); MEAN CORPUSCULAR HGB CONC 32.9 g/dL (32.4-35.8); MEAN CORPUSCULAR VOLUME 89.7 fL (80-100); MEAN PLATELET VOLUME 10.6 fL (7.4-10.4); MONOCYTES # (AUTO) 0.29 x10^3/uL (0.2-0.8); MONOCYTES % (AUTO) 7 % (2-9); NEUTROPHILS # (AUTO) 2.44 x10^3/uL (1.8-6.8); NEUTROPHILS % (AUTO) 58 % (42-75); PLATELET COUNT 155 x10^3/uL (130-400); RED BLOOD COUNT 4.02 x10^6/uL (3.82-5.3); RED CELL DISTRIBUTION WIDTH 12.7 % (9.6-15.2)
[2020-06-24 12:39] LABS: ALANINE AMINOTRANSFERASE 31 U/L (12-78); ALBUMIN 4.2 g/dL (3.4-5.0); ANION GAP 5 mmol/L (5-15); CALCIUM 8.9 mg/dL (8.5-10.1); CHLORIDE 114 mmol/L (98-107); CREATININE 2.28 mg/dL (0.55-1.02)
[2020-06-24 12:41] LABS: ALKALINE PHOSPHATASE 76 U/L (45-117); BILIRUBIN,TOTAL 0.5 mg/dL (0.2-1.0); TOTAL PROTEIN 7.9 g/dL (6.4-8.2)
--- NOTE | 2020-06-24 12:45 | NUR ---
PT AMBULATORY TO ROOM 37 W/ C/O INCREASED ABD PAIN FROM MAY AFTER PROCEDURE TO TAKE OUT KIDNEY STONE AND STENT PLACEMENT/REMOVAL. PT STATES SHE HAD INCREASING PAIN FROM LAST NIGHT. PAIN TO RLQ. PT ALSO STATES INCREASED NAUSEA. PT RESTING ON GURNEY. NADN. VSS. MONITORS APPLIED. PIV ESTABLISHED. UA SENT.
[2020-06-24] MEDS ORDERED: ONDANSETRON 2MG/ML, 2ML ONE (12:49)
[2020-06-24 12:59] LABS: MICROSCOPIC AUTO
[2020-06-24 13:40] VITALS: BP 152/86
--- NOTE | 2020-06-24 13:40 | NUR ---
PT RESTING ON GURNEY. NADN. LIZ.
--- NOTE | 2020-06-24 14:37 | NUR ---
PT CHART REVIEWED AND PLACED FOR RECHECK.
== END 2020-06-24 15:15 | disposition home or self-care (01) ==
LOC: ED 13:09
DX: R10.31 Right lower quadrant pain (principal); R10.2 Pelvic and perineal pain; R11.0 Nausea; I10 Essential (primary) hypertension; E11.9 Type 2 diabetes mellitus without complications
CPT/HCPCS: 36415; 74176; 80053; 81001; 85025; 87086; 96361; 96374; 99284; J2405; J7030

== ENCOUNTER 2021-02-16 12:36 | Emergency (ER) | payer MEDICAID ==
[~2021-02-16] VITALS: Ht 165.1 cm; Wt 78.0 kg
[~2021-02-16 12:36] MED LIST changes: -ALEN70TA6 PO; +ALEN70TA77 PO; +AMLO-211 PO; -AMLO10TA8 PO; -OMEP40CA42 PO; +OMEP40CA8 PO; -OXYC5TAB3 PO; +OXYC5TAB98 PO; -PANT40TA5 PO; +PANT40TA6 PO; -VERA180T6 PO; +[UNRECOGNIZED DRUG - CODE] PO
--- NOTE | 2021-02-16 12:50 | NUR ---
pt taken to radiology at this time
--- NOTE | 2021-02-16 13:07 | NUR ---
Pt back to room without acute change noted.
--- NOTE | 2021-02-16 13:42 | NUR ---
MD at bedside to discuss findings/plan of care with pt at this time. lead neurodiagnostic technologist waiting outside room to start long arm splint application.
[2021-02-16 14:40] VITALS: BP 129/82
== END 2021-02-16 14:45 | disposition home or self-care (01) ==
LOC: ED 14:39
DX: S52.121A Displaced fracture of head of right radius, initial encounter for closed fracture (principal); I10 Essential (primary) hypertension; E78.5 Hyperlipidemia, unspecified; K21.9 Gastro-esophageal reflux disease without esophagitis; E11.21 Type 2 diabetes mellitus with diabetic nephropathy; W01.0XXA Fall on same level from slipping, tripping and stumbling without subsequent striking against object, initial encounter; Y93.89 Activity, other specified; Y92.410 Unspecified street and highway as the place of occurrence of the external cause; Y99.8 Other external cause status
CPT/HCPCS: 29105; 99283